=== PATIENT | female | born 1980 | race Caucasian/White ===

== ENCOUNTER 2016-07-12 08:21 | Inpatient (IN) | payer BC ==
[2016-07-12] MEDS ORDERED: Dinoprostone* 10 MG VAG.SUPP VAGINAL ONE (09:01)
[2016-07-12] MEDS ORDERED: OBEPIDURAL* 250 ML ONE (18:39)
[2016-07-12] MEDS ORDERED: Lidocaine 1% MPF* 2 ML VIAL ONE (18:42)
[2016-07-12 20:03] LABS: Hematocrit 37 % (35-47); Hemoglobin 12.2 g/dl (12.0-16.0); Mean Corpuscular HGB Conc 33 g/dl (31-36); Mean Corpuscular Hemoglobin 29 pg (27-31); Mean Corpuscular Volume 86 fL (80-97); Mean Platelet Volume 8 um3 (7.4-10.4); Red Blood Count 4.28 10^6/ul (4.0-5.4); Red Cell Distribution Width 14 % (10.5-15); White Blood Count 10.7 10^3/ul (3.5-10.8)
[2016-07-12] MEDS ORDERED: Famotidine TAB* 20 MG PO PRN (20:13)
[2016-07-12] MEDS ORDERED: Sodium Citrate/Citric Acid* 15 ML UDC PO PRN (20:13)
[2016-07-12] MEDS ORDERED: Phenylephrine IV* 40 MCG/ML 10 ML SYRINGE IV PUSH PRN ×2 (20:13)
[2016-07-12] MEDS ORDERED: Oxytocin in LR* 20 UNITS/1,000 ML BAG IVPB SCH (21:00)
[2016-07-12] MEDS ORDERED: OBEPIDURAL* 250 ML EPIDURAL SCH (21:00)
[2016-07-13] MEDS ORDERED: oxyCODONE/Acetamin 5/325 MG* TAB PO PRN (00:42)
[2016-07-13] MEDS ORDERED: Witch Hazel PAD* JAR TOPICAL PRN (00:42)
[2016-07-13] MEDS ORDERED: Dibucaine 1% 28.35 GM TUBE PR PRN (00:42)
[2016-07-13] MEDS ORDERED: Oxytocin in LR* 20 UNITS/1,000 ML BAG IVPB SCH (01:00)
[2016-07-13] MEDS: Ibuprofen TAB* 600 MG PO PRN ×4 (02:40→21:05)
[2016-07-13] MEDS: Docusate CAP* 100 MG PO SCH ×3 (09:17→21:05)
[2016-07-13] MEDS: Sertraline* 25 MG TAB PO SCH (09:17)
[2016-07-13] MEDS: Acetaminophen TAB* 325 MG PO PRN (12:17)
[2016-07-14] MEDS: Ibuprofen TAB* 600 MG PO PRN ×3 (05:46→18:00)
[2016-07-14 07:09] LABS: Hematocrit 33 % (35-47); Mean Corpuscular HGB Conc 34 g/dl (31-36); Mean Corpuscular Hemoglobin 29 pg (27-31); Mean Corpuscular Volume 87 fL (80-97); Mean Platelet Volume 7 um3 (7.4-10.4); Red Blood Count 3.76 10^6/ul (4.0-5.4); Red Cell Distribution Width 14 % (10.5-15); White Blood Count 9.9 10^3/ul (3.5-10.8)
[2016-07-14] MEDS: Docusate CAP* 100 MG PO SCH ×3 (08:38→21:00)
[2016-07-14] MEDS: Sertraline* 25 MG TAB PO SCH (08:38)
[2016-07-14] MEDS ORDERED: Ferrous Gluconate TAB* 324 MG TAB PO SCH (09:00)
[2016-07-14] MEDS: Acetaminophen TAB* 325 MG PO PRN (16:54)
[2016-07-15] MEDS: Ibuprofen TAB* 600 MG PO PRN (02:18)
[2016-07-15 07:55] VITALS: BP 127/79
[2016-07-15] MEDS: Docusate CAP* 100 MG PO SCH (07:57)
[2016-07-15] MEDS: Sertraline* 25 MG TAB PO SCH (07:57)
== END 2016-07-15 13:56 | disposition home or self-care (01) | DRG 560 ==
LOC: MCHOBOUT 08:21 → MCHOB 17:34
PROVIDERS: ADMIT Nurse Practitioner; ATTEND Nurse Practitioner
PROC: 3E0P7GC Introduction of Other Therapeutic Substance into Female Reproductive, Via Natural or Artificial Opening (ICD-10-PCS; principal; 2016-07-12)
PROC: 10907ZC Drainage of Amniotic Fluid, Therapeutic from Products of Conception, Via Natural or Artificial Opening (ICD-10-PCS; 2016-07-12)
PROC: 3E033VJ Introduction of Other Hormone into Peripheral Vein, Percutaneous Approach (ICD-10-PCS; 2016-07-12)
PROC: 4A1HXCZ Monitoring of Products of Conception, Cardiac Rate, External Approach (ICD-10-PCS; 2016-07-12)
PROC: 10E0XZZ Delivery of Products of Conception, External Approach (ICD-10-PCS; 2016-07-13)
PROC: 0KQM0ZZ Repair Perineum Muscle, Open Approach (ICD-10-PCS; 2016-07-13)
DX: O99.344 Other mental disorders complicating childbirth (principal); O09.523 Supervision of elderly multigravida, third trimester; Z3A.39 39 weeks gestation of pregnancy; Z37.0 Single live birth; O70.1 Second degree perineal laceration during delivery
CPT/HCPCS: 36415; 85025; 86850; 86900; 86901; A9270-GY